=== PATIENT | male | born 1985 | race Caucasian/White ===

== ENCOUNTER 2018-09-05 22:26 | Inpatient (IN) | payer MEDICARE, MEDICAID ==
[~2018-09-05] VITALS: Ht 175.3 cm; Wt 63.2 kg
[2018-09-05] MEDS ORDERED: ACETAMINOP160 MG/5 M ORAL (22:43)
[2018-09-05] MEDS ORDERED: BISACODYL10 M1 RC (22:44)
[2018-09-05] MEDS ORDERED: DIPHENHYDRAMINE25 M1 JT (22:44)
[2018-09-05] MEDS ORDERED: KEPPRA500 M4 JT (22:45)
[2018-09-05] MEDS ORDERED: IBUPROFEN600 MG JT (22:45)
[2018-09-05] MEDS ORDERED: MILK OF MA400 MG/51 JT (22:47)
[2018-09-05] MEDS ORDERED: MULTIVITAMINS1 EAC8 JT (22:48)
[2018-09-05] MEDS ORDERED: POLYETHYLENE GL17 GM JT (22:48)
[2018-09-05] MEDS ORDERED: PROTONIX40 MG JT (22:48)
[2018-09-05] MEDS ORDERED: SENNA8.6 M2 JT (22:49)
--- NOTE | 2018-09-05 23:20 | NUR ---
ED Nurse Note: Pt was BIBA from SNF, C/O abdominal pain around G-tube site, 01/14 today. Pt is A/O X 4. Pt had Hx of CVA with right side weakness. G-tube in place and patent. Voiding, skin intact, Vital signs stable at this time.
[2018-09-05] MEDS ORDERED: Morphine Sulfate 2mg/ml Inj(IV/IM USE ONLY) IVP ONE (23:30)
[2018-09-05] MEDS ORDERED: Isovue-300 100ml vial INJ PRN (23:30)
--- NOTE | 2018-09-05 23:50 | NUR ---
ED Nurse Note: Blood and urine sample collected and sent to Lab.
--- NOTE | 2018-09-06 00:15 | NUR ---
ED Nurse Note: Meds given as ordered.
[2018-09-06 00:21] LABS: BASOPHILS % (AUTO) 0.9 % (0.0-2.0); EOSINOPHILS % (AUTO) 5.7 % (0.0-3.0); HEMOGLOBIN 11.8 G/DL (14.2-18.0); LYMPHOCYTES % (AUTO) 22.6 % (20.0-45.0); MEAN CORPUSCULAR VOLUME 83 FL (80-99); MONOCYTES % (AUTO) 11.6 % (1.0-10.0); NEUTROPHILS % (AUTO) 59.2 % (45.0-75.0); PLATELET COUNT 214 K/UL (150-450); RED BLOOD COUNT 4.47 M/UL (4.70-6.10); RED CELL DISTRIBUTION WIDTH 12.9 % (11.6-14.8); WHITE BLOOD COUNT 7.5 K/UL (4.8-10.8)
[2018-09-06 00:22] LABS: APPEARANCE,URINE CLEAR; BILIRUBIN, URINE NEGATIVE (NEGATIVE); COLOR,URINE PALE YELLOW; GLUCOSE, URINE (UA) NEGATIVE (NEGATIVE); KETONES,URINE NEGATIVE (NEGATIVE); LEUKOCYTE ESTERASE ,URINE NEGATIVE (NEGATIVE); NITRITE,URINE NEGATIVE (NEGATIVE); PH,URINE 7 (4.5-8.0); PROTEIN,URINE NEGATIVE (NEGATIVE); UROBILINOGEN,URINE NORMAL MG/DL (0.0-1.0)
[2018-09-06 01:02] LABS: ALANINE AMINOTRANSFERASE 20 U/L (12-78); ALBUMIN 3.4 G/DL (3.4-5.0); ALBUMIN/GLOBULIN RATIO 0.9 (1.0-2.7); ALKALINE PHOSPHATASE 83 U/L (46-116); ANION GAP 7 mmol/L (5-15); ASPARTATE AMINO TRANSFERASE 15 U/L (15-37); BILIRUBIN,TOTAL 0.2 MG/DL (0.2-1.0); BLOOD UREA NITROGEN 10 mg/dL (7-18); CALCIUM 8.9 MG/DL (8.5-10.1); CARBON DIOXIDE 28 MMOL/L (21-32); CHLORIDE 104 MMOL/L (98-107); CREATINE KINASE 136 U/L (26-308); CREATININE 0.8 MG/DL (0.55-1.30); POTASSIUM 3.8 MMOL/L (3.5-5.1); SODIUM 139 MMOL/L (136-145)
[2018-09-06 01:30] VITALS: BP 128/81
--- NOTE | 2018-09-06 01:51 | Diagnostic Imaging Report ---
EXAM: XR Chest, 1 View CLINICAL HISTORY: ABD PAIN TECHNIQUE: Frontal view of the chest. COMPARISON: No relevant prior studies available. FINDINGS: Lungs: Low lung volumes. Left lower lobe infiltrate. Pleural space: Small left effusion. No pneumothorax. Heart: Unremarkable. No cardiomegaly. Mediastinum: Unremarkable. Bones/joints: Unremarkable. IMPRESSION: Left lower lobe infiltrate and small left effusion, recommend followup to resolution.
--- NOTE | 2018-09-06 03:37 | Diagnostic Imaging Report ---
EXAM: CT Abdomen and Pelvis With Intravenous Contrast CLINICAL HISTORY: ABD PAIN TECHNIQUE: Axial computed tomography images of the abdomen and pelvis with intravenous contrast. CTDI is 10 mGy and DLP is 560 mGy-cm. One or more of the following dose reduction techniques were used: automated exposure control, adjustment of the mA and/or kV according to patient size, use of iterative reconstruction technique. COMPARISON: Correlated with earlier chest radiograph. FINDINGS: Lung bases: Query partial left pneumonectomy changes with left lower lobe infiltrates and small loculated left effusion. Trace right pleural effusion. Dependent vascular congestion/atelectasis. ABDOMEN: Liver: Unremarkable. No mass. Gallbladder and bile ducts: Unremarkable. No calcified stones. No ductal dilation. Pancreas: Unremarkable. No mass. No ductal dilation. Spleen: Unremarkable. No splenomegaly. Adrenals: Unremarkable. No mass. Kidneys and ureters: Multiple low-density lesions in the kidneys bilaterally. No hydronephrosis. Stomach and bowel: See below. PELVIS: Appendix: Normal appendix. Bladder: Distended bladder. Reproductive: Unremarkable as visualized. ABDOMEN and PELVIS: Intraperitoneal space: 10 x 8 x 8 cm cystic lesion in the lesser sac. No free air. Bones/joints: Partial fusion of the sacroiliac joints. Soft tissues: Postsurgical changes in anterior abdominal wall. Thickening of the lower left lateral chest wall with internal fluid and edema. Irregularity and deformity of the left seventh and eighth ribs, partially visualized. Vasculature: Unremarkable. Lymph nodes: Unremarkable. No enlarged lymph nodes. Tubes, lines and devices: Percutaneous jejunostomy catheter with tip in the right abdomen. No bowel obstruction. No diverticulitis. IMPRESSION: Postsurgical changes in the left lower hemithorax with associated loculated effusion and infiltrate/atelectasis versus aspiration. Probable thoracotomy changes in the low left lateral chest wall with fluid, edema, and irregularity. Correlate with clinical signs of infection. 10 x 8 x 8 cm cystic lesion in the lesser sac, may represent pseudocysts. Differential consideration is a bowel duplication cyst. Normal appendix. No free air. No bowel obstruction. Percutaneous jejunostomy tube in place. <MYCVCSECTION> Critical Value Communications 09/06/18 03:32 Call Doctor Regarding Above results, called ER Doctor on 09/06 03:31 (-08:00)
--- NOTE | 2018-09-06 03:41 | Emergency Room Report ---
History of Present Illness General Chief Complaint: Abdominal Pain Source: Patient, Medical Record, EMS Present Illness HPI Patient presents with abdominal pain. He has a J-tube in place. This is been going on for several days. Feels pressure and aching. It is nonradiating. Constant. He claims to be moving his bowels however complains of some constipation. There is no dysuria. Patient has a complicated history and apparently had perforation of the esophagus. He had also left pneumothorax that required 3 chest tubes and then throat decortication. This was back in 05/25/2018. 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 The patient has a history of seizures that's controlled on Keppra. He denies sore throat, cough or dyspnea chest pain or rashes. The weakness is not changed. He is somewhat depressed but optimistic. Allergies: Coded Allergies: No Known Allergies (Unverified , 09/05/18) Patient History Past Medical History: see triage record, old chart reviewed Past Surgical History: other Social History: Denies: smoking Social History Narrative SNF DNR Reviewed Nursing Documentation: PMH: Agreed; PSxH: Agreed Nursing Documentation-PMH Hx Gastrointestinal Problems: Yes - gastrostomy,gerd Hx Cerebrovascular Accident: Yes - tia,cva Hx Seizures: Yes Physical Exam Vital Signs Date Time Temp Pulse Resp B/P (MAP) Pulse Ox O2 Delivery O2 Flow Rate FiO2 09/05/18 22:32 97.7 93 16 124/82 94 Room Air Sp02 EP Interpretation: reviewed, normal General Appearance: well appearing, no apparent distress, GCS 15 Head: normocephalic, atraumatic Eyes: bilateral eye normal inspection, bilateral eye PERRL ENT: moist mucus membranes Neck: supple Respiratory: lungs clear, normal breath sounds Cardiovascular #1: regular rate, rhythm Cardiovascular #2: 2+ radial (R) Gastrointestinal: normal bowel sounds, no guarding, no rebound, distended, tenderness - Diffuse, other - J tube Musculoskeletal: other - contractures R hand Neurologic: oriented x3, responsive, sensory intact, motor weakness - R Psychiatric: mood/affect normal Skin: normal color, no rash Medical Decision Making Diagnostic Impression: Primary Impression: Abdominal pain Qualified Codes: R10.84 - Generalized abdominal pain Additional Impressions: Pseudocyst of pancreas Chronic left lung findings ER Course Patient presents with abdominal pain. Differential includes small bowel obstruction, constipation, diverticulitis, pancreatitis, urinary tract infection amongst others. The patient will be evaluated with EKG, chest x-ray and CT of the abdomen along with labs. The patient will be receiving IV hydration, Pepcid and analgesia. The patient has a J-tube and this also might be part of the difficulty. EKG normal sinus rhythm rate 73. Chest x-ray with left lower lobe atelectasis, effusion chronic changes. CT with large pseudocyst (also see results of lung findings). Labs with normal white count without left shift. CMP unremarkable. Urinalysis clear. Lipase normal. Patient is improved but still with abdominal discomfort. Based on CT needs admission for observation and evaluation of pseudocyst. Lung changes appear to be chronic. Antibiotics are not begun based on the clinical presentation. Patient admitted to Dr. Johnson who is covering for Dr. Lebron. Laboratory Tests Test 09/06/18 00:02 White Blood Count 7.5 K/UL (4.8-10.8) Red Blood Count 4.47 M/UL (4.70-6.10) L Hemoglobin 11.8 G/DL (14.2-18.0) L Hematocrit 37.0 % (42.0-52.0) L Mean Corpuscular Volume 83 FL (80-99) Mean Corpuscular Hemoglobin 26.5 PG (27.0-31.0) L Mean Corpuscular Hemoglobin Concent 32.0 G/DL (32.0-36.0) Red Cell Distribution Width 12.9 % (11.6-14.8) Platelet Count 214 K/UL (150-450) Mean Platelet Volume 5.1 FL (6.5-10.1) L Neutrophils (%) (Auto) 59.2 % (45.0-75.0) Lymphocytes (%) (Auto) 22.6 % (20.0-45.0) Monocytes (%) (Auto) 11.6 % (1.0-10.0) H Eosinophils (%) (Auto) 5.7 % (0.0-3.0) H Basophils (%) (Auto) 0.9 % (0.0-2.0) Prothrombin Time 10.6 SEC (9.30-11.50) Prothrombin Time INR 1.0 (0.9-1.1) PTT 27 SEC (23-33) Urine Color Pale yellow Urine Appearance Clear Urine pH 7 (4.5-8.0) Urine Specific [place] 1.010 (1.005-1.035) Urine Protein Negative (NEGATIVE) Urine Glucose (UA) Negative (NEGATIVE) Urine Ketones Negative (NEGATIVE) Urine Blood Negative (NEGATIVE) Urine Nitrite Negative (NEGATIVE) Urine Bilirubin Negative (NEGATIVE) Urine Urobilinogen Normal MG/DL (0.0-1.0) Urine Leukocyte Esterase Negative (NEGATIVE) Sodium Level 139 MMOL/L (136-145) Potassium Level 3.8 MMOL/L (3.5-5.1) Chloride Level 104 MMOL/L (98-107) Carbon Dioxide Level 28 MMOL/L (21-32) Anion Gap 7 mmol/L (5-15) Blood Urea Nitrogen 10 mg/dL (7-18) Creatinine 0.8 MG/DL (0.55-1.30) Estimate Glomerular Filtration Rate > 60 mL/min (>60) Glucose Level 87 MG/DL (74-106) Lactic Acid Level 1.00 mmol/L (0.4-2.0) Calcium Level 8.9 MG/DL (8.5-10.1) Total Bilirubin 0.2 MG/DL (0.2-1.0) Aspartate Amino Transferase (AST) 15 U/L (15-37) Alanine Aminotransferase (ALT) 20 U/L (12-78) Alkaline Phosphatase 83 U/L (46-116) Total Creatine Kinase 136 U/L (26-308) Total Protein 7.2 G/DL (6.4-8.2) Albumin 3.4 G/DL (3.4-5.0) Globulin 3.8 g/dL Albumin/Globulin Ratio 0.9 (1.0-2.7) L Lipase 123 U/L (73-393) EKG Diagnostic Results Rate: normal Rhythm: NSR ST Segments: no acute changes Rhythm Strip Diag. Results EP Interpretation: yes Rhythm: NSR, no PVC's, no ectopy Chest X-Ray Diagnostic Results Chest X-Ray Diagnostic Results : Chest X-Ray Ordered: Yes # of Views/Limited/Complete: 1 View Indication: Other EP Interpretation: Yes Interpretation: no pneumothorax, other - Atelectasis, effusion chronic changes left base Impression: Other Electronically Signed by: Electronically signed by Vik Jon MD CT/MRI/US Diagnostic Results CT/MRI/US Diagnostic Results : Imaging Test Ordered: abd/pelvis Impression Postsurgical changes in the left lower hemithorax with associated loculated effusion and infiltrate/atelectasis versus aspiration. Probable thoracotomy changes in the low left lateral chest wall with fluid, edema, and irregularity. Correlate with clinical signs of infection. 10 x 8 x 8 cm cystic lesion in the lesser sac, may represent pseudocysts. Differential consideration is a bowel duplication cyst. Normal appendix. No free air. No bowel obstruction. Percutaneous jejunostomy tube in place. Last Vital Signs Date Time Temp Pulse Resp B/P (MAP) Pulse Ox O2 Delivery O2 Flow Rate FiO2 09/06/18 09:00 Room Air 09/06/18 08:00 98.0 84 17 119/70 (86) 96 Status: improved Disposition: ADMITTED INPATIENT Condition: Serious Referrals: Vahe Vera MD (PCP) Vik Jon MD Sep 06, 2018 03:41
--- NOTE | 2018-09-06 04:03 | NUR ---
ED Nurse Note: Pt refused to have VRE done.
--- NOTE | 2018-09-06 04:15 | NUR ---
TRANSFER TO FLOOR: Patient transferred to /S 403 as ordered . Report given to AURELIO/RN. Belongings sent with pt and rechecked with RN. Pt is A/O X 4. VSS. Right side weakness.
[2018-09-06 04:34] VITALS: BP 114/80
--- NOTE | 2018-09-06 04:41 | NUR ---
NURSE NOTES: Admitted patient awake,alert,verbal,ambulatory,no SOB nor abdominal pain,with essentially normal vital signs. Patient does not want to change to hospital gown at this time.
[2018-09-06] MEDS ORDERED: ACETAMINOPHEN325 M1 JT (06:38)
[2018-09-06] MEDS ORDERED: KEPPRA LIQ100 MG/1 M ORAL (06:38)
--- NOTE | 2018-09-06 07:00 | NUR ---
NURSE NOTES: Left messages to Aziza Hein, and for admitting orders.Awaiting call back. Charge Nurse Neela, and Nursing B Operator Vimal aware.
--- NOTE | 2018-09-06 07:30 | NUR ---
NURSE NOTES: Received report from ADA Velazquez, Patient alert x4, on room air, no sign of distress and shortness of breath; no sign of chest pain; J-Tube in place; IV RFA flushes well; patient is ambulatory, history of CVA and R-upper extremity weakness and contracted; PM nurse, Caroline didn't received admission order from MD Vera and also PM nurse tried to reach MD Beck, who is covering for MD Vera. Will follow up on the admission order; explained to patient that still waiting for the admission order. Bed at lowest position, side rails, breaks engaged; Call light within reach, will keep monitoring.
--- NOTE | 2018-09-06 07:33 | NUR ---
HAND-OFF: Report given to Zena Robb RN and to follow-up admitting orders..
[2018-09-06 08:00] VITALS: BP 119/70
--- NOTE | 2018-09-06 09:25 | NUR ---
NURSE NOTES: I called to get admission order for this patient to MD Beck office, I spoke to Terrence. Waiting call back to get admission order.
--- NOTE | 2018-09-06 09:59 | NUR ---
NURSE NOTES: I got a call back from [phone] number by MD Kumar and told that MD Beck isn't covering for MD Vera. I called MD Vera and I just followed the voice instruction and called MD Mustafa; however MD Mustafa said is not covering for MD Kumar; I called nursing complaint supervisor, Ms Colin, to find out who is covering for MD Jaimes, I was told by nursing complaint supervisor that MD Montiel is covering for MD Kumar; I communicated MD Montiel and waiting for order.
--- NOTE | 2018-09-06 12:13 | Consultation ---
History of Present Illness General Date patient seen: Sep 06, 2018 Reason for Hospitalization: Abdominal Pain Present Illness HPI 33 year old male with complex medical and surgical history presented with abdominal pain. States he has been at Rehab facility when he noted some abdominal cramping while sneezing. Did not feel comfortable and [place] [facility] [place]. 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 He had a fall in 2010 causing esophageal dysmotility as per patient and sometime in 2010 he had aspirated a piece of chicken which required endoscopic removal where a potential tear in his esophagus was noted as per patient. And late 2017 he had aspiration of a turkey sandwich at which time at [facility] he had endoscopic removal from his esophagus and they noted a laceration in his esophagus. He underwent a thoracotomy with a muscle flap repair of the esophageal tear as well as a open feeding tube placement. Since he has been in rehab tolerating pured diet with meds through his J-tube. Recently he began to have abdominal pain with sneezing. On admission to the emergency department labs were otherwise normal but CT scan demonstrated a large lesser sac cyst versus fluid collection. Patient was admitted for care and management and surgery was called to evaluate. Currently patient states he is feeling well and hungry but does have some discomfort when he coughs or sneezes. Of note patient states that he has had pancreatitis in the past. Allergies: Coded Allergies: No Known Allergies (Unverified , 09/05/18) Medication History Scheduled Acetaminophen* (Acetaminophen 325MG Tablet*), 650 MG JT Q6H, (Reported) Levetiracetam (Keppra), 100 MG JT EVERY 12 HOURS, (Reported) Levetiracetam (Keppra), 15 ML ORAL BID, (Reported) Multivitamin With Minerals (Multivitamins With Minerals*), 1 TAB JT DAILY, ( Reported) Pantoprazole* (Protonix*), 40 MG JT DAILY, (Reported) Polyethylene Glycol 3350* (Polyethylene Glycol 3350*), 17 GM JT DAILY, (Reported ) Sennosides (Senna), 8.6 MG JT DAILY, (Reported) Scheduled PRN Acetaminophen 160MG/5ML* (Acetaminophen*), 650 MG ORAL THREE TIMES A DAY PRN for Fever/Headache/Mild Pain, (Reported) Bisacodyl (Bisacodyl), 10 MG RC DAILY PRN for Constipation, (Reported) Diphenhydramine Hcl* (Diphenhydramine Hcl*), 25 MG JT EVERY 4 HOURS PRN for Itching, (Reported) Ibuprofen* (Motrin*), 400 MG JT EVERY 8 HOURS PRN for For Pain, (Reported) Magnesium Hydroxide* (Milk Of Magnesia*), 15 ML JT EVERY 12 HOURS PRN for Constipation, (Reported) Patient History History Provided By: Patient, Medical Record, PMD Healthcare decision maker Resuscitation status Do Not Resuscitate Advanced Directive on File No Past Medical/Surgical History Past Medical/Surgical History: (1) Pseudocyst of pancreas (2) Abdominal pain Review of Systems Review of Symptoms General ROS: no weight loss or fever Psychological ROS: no depression or mood changes, no memory loss Ophthalmic ROS: no visual changes or eye irritation ENT ROS: no nasal congestion, hearing loss, dizziness Allergy and Immunology ROS: no allergic symptoms or urticaria Hematological and Lymphatic ROS: no swollen glands, unusual bleeding or bruising Endocrine ROS: no polyuria, polydipsia, weight changes, temperature intolerance Respiratory ROS: no cough, shortness of breath, or wheezing Cardiovascular ROS: no chest pain or dyspnea on exertion Gastrointestinal ROS: denies abdominal pain, bright red blood in stool. Musculoskeletal ROS: no myalgias or arthralgias Neurological ROS: no TIA or stroke symptoms Dermatological ROS: no new or changing skin lesions, rashes or pruritis Physical Exam Physical Exam General appearance: alert, cooperative, no distress, appears stated age Head: Normocephalic, without obvious abnormality, atraumatic Eyes: conjunctivae/corneas clear. PERRL, EOM's intact. Fundi benign Throat: Lips, mucosa, and tongue normal. Teeth and gums normal Neck: supple, symmetrical, trachea midline, no adenopathy, thyroid: not enlarged, symmetric, no tenderness/mass/nodules, no carotid bruit and no JVD Lungs: clear to auscultation bilaterally. left throractomy incision well healed Heart: regular rate and rhythm, S1, S2 normal, no murmur, click, rub or gallop Abdomen: soft, non-tender. Bowel sounds normal. No masses, no organomegaly. midline incision healed. left j feeding tube Extremities: extremities normal, atraumatic, no cyanosis or edema Pulses: 2+ and symmetric Skin: Skin color, texture, turgor normal. No rashes or lesions Neurologic: Grossly normal Last 24 Hour Vital Signs Date Time Temp Pulse Resp B/P (MAP) Pulse Ox O2 Delivery O2 Flow Rate FiO2 09/06/18 09:00 Room Air 09/06/18 08:00 98.0 84 17 119/70 (86) 96 09/06/18 04:34 Room Air 09/06/18 04:34 97.4 70 18 114/80 (91) 96 09/06/18 01:30 97.8 79 16 128/81 94 Room Air 09/06/18 01:30 78 16 Room Air 09/06/18 00:45 97.4 09/05/18 22:32 97.7 93 16 124/82 94 Room Air Intake and Output 09/05/18 09/06/18 19:00 07:00 Intake Total 300 ml Balance 300 ml Intake Oral 0 ml Other 300 ml # Voids 1 Laboratory Tests Test 09/06/18 00:02 White Blood Count 7.5 K/UL (4.8-10.8) Red Blood Count 4.47 M/UL (4.70-6.10) L Hemoglobin 11.8 G/DL (14.2-18.0) L Hematocrit 37.0 % (42.0-52.0) L Mean Corpuscular Volume 83 FL (80-99) Mean Corpuscular Hemoglobin 26.5 PG (27.0-31.0) L Mean Corpuscular Hemoglobin Concent 32.0 G/DL (32.0-36.0) Red Cell Distribution Width 12.9 % (11.6-14.8) Platelet Count 214 K/UL (150-450) Mean Platelet Volume 5.1 FL (6.5-10.1) L Neutrophils (%) (Auto) 59.2 % (45.0-75.0) Lymphocytes (%) (Auto) 22.6 % (20.0-45.0) Monocytes (%) (Auto) 11.6 % (1.0-10.0) H Eosinophils (%) (Auto) 5.7 % (0.0-3.0) H Basophils (%) (Auto) 0.9 % (0.0-2.0) Prothrombin Time 10.6 SEC (9.30-11.50) Prothromb Time International Ratio 1.0 (0.9-1.1) Activated Partial Thromboplast Time 27 SEC (23-33) Urine Color Pale yellow Urine Appearance Clear Urine pH 7 (4.5-8.0) Urine Specific [place] 1.010 (1.005-1.035) Urine Protein Negative (NEGATIVE) Urine Glucose (UA) Negative (NEGATIVE) Urine Ketones Negative (NEGATIVE) Urine Blood Negative (NEGATIVE) Urine Nitrite Negative (NEGATIVE) Urine Bilirubin Negative (NEGATIVE) Urine Urobilinogen Normal MG/DL (0.0-1.0) Urine Leukocyte Esterase Negative (NEGATIVE) Sodium Level 139 MMOL/L (136-145) Potassium Level 3.8 MMOL/L (3.5-5.1) Chloride Level 104 MMOL/L (98-107) Carbon Dioxide Level 28 MMOL/L (21-32) Anion Gap 7 mmol/L (5-15) Blood Urea Nitrogen 10 mg/dL (7-18) Creatinine 0.8 MG/DL (0.55-1.30) Estimat Glomerular Filtration Rate > 60 mL/min (>60) Glucose Level 87 MG/DL (74-106) Lactic Acid Level 1.00 mmol/L (0.4-2.0) Calcium Level 8.9 MG/DL (8.5-10.1) Total Bilirubin 0.2 MG/DL (0.2-1.0) Aspartate Amino Transf (AST/SGOT) 15 U/L (15-37) Alanine Aminotransferase (ALT/SGPT) 20 U/L (12-78) Alkaline Phosphatase 83 U/L (46-116) Total Creatine Kinase 136 U/L (26-308) Total Protein 7.2 G/DL (6.4-8.2) Albumin 3.4 G/DL (3.4-5.0) Globulin 3.8 g/dL Albumin/Globulin Ratio 0.9 (1.0-2.7) L Lipase 123 U/L (73-393) Height (Feet): 5 Height (Inches): 9.00 Weight (Pounds): 140 Medications Current Medications Medications (Trade) Dose Ordered Sig/Dolores Route PRN Reason Start Time Stop Time Status Last Admin Dose Admin Barium Sulfate (Readi-Cat 2) 450 ml NOW PRN ORAL Radiology Procedure 09/05/18 23:30 09/07/18 23:18 Iopamidol (Isovue-300 100ml) 100 ml NOW PRN INJ Radiology Procedure 09/05/18 23:30 Sodium Chloride 1,000 ml @ 300 mls/hr Q3H20M IV 09/05/18 23:30 10/05/18 23:29 09/06/18 00:14 Assessment/Plan Problem List: (1) Abdominal pain Assessment & Plan: This is a 33-year-old male with complex medical and surgical history who presents with abdominal pain while coughing or sneezing. Patient is afebrile hemodynamically stable with otherwise normal labs. Patient' s CAT scan demonstrates a moderate sized lesser sac fluid collection with unknown etiology.10 x 8 x 8 cm cystic lesion in the lesser sac, may represent pseudocysts. Differential consideration is a bowel duplication cyst. likely pancreatic pseydocyst from prior pancreatitis. will need to review records from [facility] once available Okay for Puree diet for now okay for meds though J tube will review films with radiologist and GI Thank you will follow with recs. ICD Codes: R10.9 - Unspecified abdominal pain SNOMED: 43295429 (2) Pseudocyst of pancreas ICD Codes: K86.3 - Pseudocyst of pancreas SNOMED: [id number] Chevy Ren Sep 06, 2018 12:12
[2018-09-06] MEDS ORDERED: HYDROmorphone 1mg/ml Carpuject IVP PRN (12:15)
--- NOTE | 2018-09-06 13:00 | NUR ---
NURSE NOTES: I communicated Dr Johnson that patient is DNR and DNI at the facility patient came from. Order received from MD Johnson, Full Code.
[2018-09-06] MEDS: levETIRAcetam 500mg/NS100ml 100 ML IVPB SCH ×2 (14:23→20:05)
[2018-09-06] MEDS: Piperacillin/Tazobactam 3.375 GM in D5W 110 ML IVPB SCH ×2 (15:54→20:59)
[2018-09-06 16:00] VITALS: BP 116/76
--- NOTE | 2018-09-06 18:14 | NUR ---
NURSE NOTES: Dressing on J-tube changed, patient tolerated well.
--- NOTE | 2018-09-06 19:13 | NUR ---
HAND-OFF: Report given to ADA Quezada.
[2018-09-06 20:00] VITALS: BP 111/71
--- NOTE | 2018-09-06 20:00 | NUR ---
NURSE NOTES: Received patient awake,alert,verbal,resting in bed,comfortable.
[2018-09-06] MEDS: Heparin 5000 units/ml inj SUBQ SCH ×2 (20:05→20:19)
--- NOTE | 2018-09-06 22:30 | History and Physical Report ---
DATE OF ADMISSION: 09/06/2018 CHIEF COMPLAINT: Abdominal pain. HISTORY OF PRESENT ILLNESS: The patient is a 33-year-old male. He has a prior history of seizure disorder. According to the patient, he was well until May when he was in [place] and got a piece of turkey stuck in his throat. [facility]oscopy to remove the turkey. Apparently at that time, they found a large laceration in the esophagus. According to the patient, he believes laceration had been there for several years. He had a G-tube placed in the meantime to allow for healing of the esophageal laceration. The patient was well until the night of admission, when developed severe epigastric abdominal pain and presented to the emergency room. On evaluation there, he was noted to have evidence of a loculated pleural effusion. It is unclear if this is old. He has a large cyst in the lesser sac and also seen on CAT scan. It is unclear whether or not this is new. The patient denies any melena. He has had no bright red blood per rectum. Denies any fevers or chills. The patient is now admitted for further evaluation. PAST MEDICAL HISTORY: As above. PAST SURGICAL HISTORY: As above. CURRENT MEDICATIONS: Reconciled and reviewed. ALLERGIES: None. FAMILY HISTORY: None. SOCIAL HISTORY: Negative for tobacco, ethanol, or drugs. REVIEW OF SYSTEMS: GENERAL: No fevers or chills. HEENT: No headaches or visual changes. CARDIOPULMONARY: No chest pain or shortness of breath. GASTROINTESTINAL: Positive midepigastric abdominal pain. GENITOURINARY: No urgency or frequency. MUSCULOSKELETAL: No joint pain or swelling. NEUROLOGIC: No evidence of seizures. LABORATORY DATA: Sodium 139, potassium was 3.8, and creatinine was 0.8. LFTs were normal. Lipase was normal. The white count was 7. Hemoglobin 11, hematocrit 37, and platelets of 314,000. ASSESSMENT: This is a pleasant male with a history of esophageal laceration. G-tube with complaints of abdominal pain of unclear etiology. It is unclear whether or not this pain is related to a cyst. PLAN: Gastrointestinal and Surgical evaluations. Empiric antibiotic therapy to cover for pneumonia. Pulmonary consultation will also be obtained. The patient will be continued on seizure medications, but otherwise will be kept NPO until seen by consultants. Louis Johnson M.D. DR: BROWN JOB#: [id number] CC:
[2018-09-07 04:00] VITALS: BP 105/74
[2018-09-07] MEDS: Piperacillin/Tazobactam 3.375 GM in D5W 110 ML IVPB SCH ×3 (05:00→22:10)
--- NOTE | 2018-09-07 07:11 | NUR ---
HAND-OFF: Report given to Zena Robb RN.
--- NOTE | 2018-09-07 07:44 | NUR ---
NURSE NOTES: Patient alert x4, on room air, no sign of distress and shortness of breath; no sign of chest pain; IV RFA fluid running; J-Tube in place; patient ambulatory; bed at low position, side rails up x2, breaks engaged. Call light within reach. Will keep monitoring.
[2018-09-07 08:00] VITALS: BP 127/75
[2018-09-07] MEDS: Pantoprazole Inj IVP SCH (09:07)
[2018-09-07] MEDS: levETIRAcetam 500mg/NS100ml 100 ML IVPB SCH ×2 (09:07→20:59)
[2018-09-07] MEDS: Heparin 5000 units/ml inj SUBQ SCH ×2 (09:11→21:01)
[2018-09-07 09:24] LABS: BASOPHILS % (AUTO) 0.6 % (0.0-2.0); EOSINOPHILS % (AUTO) 4.7 % (0.0-3.0); HEMATOCRIT 38.2 % (42.0-52.0); HEMOGLOBIN 12.2 G/DL (14.2-18.0); LYMPHOCYTES % (AUTO) 13.1 % (20.0-45.0); MEAN CORPUSCULAR VOLUME 84 FL (80-99); MONOCYTES % (AUTO) 9.2 % (1.0-10.0); NEUTROPHILS % (AUTO) 72.4 % (45.0-75.0); PLATELET COUNT 208 K/UL (150-450); RED BLOOD COUNT 4.55 M/UL (4.70-6.10); RED CELL DISTRIBUTION WIDTH 12.8 % (11.6-14.8); WHITE BLOOD COUNT 6.4 K/UL (4.8-10.8)
[2018-09-07 09:49] LABS: ALANINE AMINOTRANSFERASE 17 U/L (12-78); ALBUMIN/GLOBULIN RATIO 0.7 (1.0-2.7); ALKALINE PHOSPHATASE 80 U/L (46-116); AMYLASE 36 U/L (25-115); ANION GAP 9 mmol/L (5-15); ASPARTATE AMINO TRANSFERASE 15 U/L (15-37); BILIRUBIN,TOTAL 0.5 MG/DL (0.2-1.0); BLOOD UREA NITROGEN 8 mg/dL (7-18); CALCIUM 8.6 MG/DL (8.5-10.1); CARBON DIOXIDE 27 MMOL/L (21-32); CHLORIDE 103 MMOL/L (98-107); CREATININE 0.9 MG/DL (0.55-1.30); POTASSIUM 3.6 MMOL/L (3.5-5.1); SODIUM 139 MMOL/L (136-145)
[2018-09-07 12:00] VITALS: BP 127/75
[2018-09-07] MEDS ORDERED: Gadavist 7.5mMol/7.5ml vial IV PRN (13:15)
--- NOTE | 2018-09-07 13:15 | Surgery Progress Note ---
Surgery Progress Note Subjective Additional Comments no acute events. resting comfortable. no n/v/f/c. tolerating. labs noted. Objective Last 24 Hour Vital Signs Date Time Temp Pulse Resp B/P (MAP) Pulse Ox O2 Delivery O2 Flow Rate FiO2 09/07/18 12:00 98.3 88 18 127/75 (92) 97 09/07/18 09:00 Room Air 09/07/18 08:00 98.3 88 18 127/75 (92) 97 09/07/18 04:00 98.0 85 16 105/74 (84) 95 09/06/18 21:17 Room Air 09/06/18 20:00 97.7 89 18 111/71 (84) 95 09/06/18 16:00 97.0 98 20 116/76 (89) 95 I&O Intake and Output 09/06/18 09/07/18 19:00 07:00 Intake Total 400 ml 965.0 ml Output Total 250 ml Balance 150 ml 965.0 ml Intake Oral 400 ml 400 ml IV Total 565.0 ml Output Urine Total 250 ml # Voids 3 3 Drains: other Cardiovascular: RSR Respiratory: clear Abdomen: soft, non-tender, non-distended Extremities: no cyanosis Laboratory Tests Test 09/07/18 08:45 White Blood Count 6.4 K/UL (4.8-10.8) Red Blood Count 4.55 M/UL (4.70-6.10) L Hemoglobin 12.2 G/DL (14.2-18.0) L Hematocrit 38.2 % (42.0-52.0) L Mean Corpuscular Volume 84 FL (80-99) Mean Corpuscular Hemoglobin 26.7 PG (27.0-31.0) L Mean Corpuscular Hemoglobin Concent 31.8 G/DL (32.0-36.0) L Red Cell Distribution Width 12.8 % (11.6-14.8) Platelet Count 208 K/UL (150-450) Mean Platelet Volume 5.0 FL (6.5-10.1) L Neutrophils (%) (Auto) 72.4 % (45.0-75.0) Lymphocytes (%) (Auto) 13.1 % (20.0-45.0) L Monocytes (%) (Auto) 9.2 % (1.0-10.0) Eosinophils (%) (Auto) 4.7 % (0.0-3.0) H Basophils (%) (Auto) 0.6 % (0.0-2.0) Erythrocyte Sedimentation Rate 24 MM/HR (0-15) H Prothrombin Time 10.7 SEC (9.30-11.50) Prothromb Time International Ratio 1.0 (0.9-1.1) Activated Partial Thromboplast Time 28 SEC (23-33) Sodium Level 139 MMOL/L (136-145) Potassium Level 3.6 MMOL/L (3.5-5.1) Chloride Level 103 MMOL/L (98-107) Carbon Dioxide Level 27 MMOL/L (21-32) Anion Gap 9 mmol/L (5-15) Blood Urea Nitrogen 8 mg/dL (7-18) Creatinine 0.9 MG/DL (0.55-1.30) Estimat Glomerular Filtration Rate > 60 mL/min (>60) Glucose Level 144 MG/DL (74-106) H Calcium Level 8.6 MG/DL (8.5-10.1) Total Bilirubin 0.5 MG/DL (0.2-1.0) Aspartate Amino Transf (AST/SGOT) 15 U/L (15-37) Alanine Aminotransferase (ALT/SGPT) 17 U/L (12-78) Alkaline Phosphatase 80 U/L (46-116) C-Reactive Protein, Quantitative 4.6 mg/dL (0.00-0.90) H Total Protein 7.1 G/DL (6.4-8.2) Albumin 3.0 G/DL (3.4-5.0) L Globulin 4.1 g/dL Albumin/Globulin Ratio 0.7 (1.0-2.7) L Amylase Level 36 U/L (25-115) Lipase 114 U/L (73-393) Plan Problems: (1) Abdominal pain Assessment & Plan: This is a 33-year-old male with complex medical and surgical history who presents with abdominal pain while coughing or sneezing. Patient is afebrile hemodynamically stable with otherwise normal labs. Patient' s CAT scan demonstrates a moderate sized lesser sac fluid collection with unknown etiology.10 x 8 x 8 cm cystic lesion in the lesser sac, may represent pseudocysts. Differential consideration is a bowel duplication cyst. likely pancreatic pseydocyst from prior pancreatitis. will need to review records from [facility] once available Okay for Puree diet for now okay for meds though J tube will review films with radiologist and GI MRI Abdomen ordered Thank you will follow with recs. (2) Pseudocyst of pancreas Chevy Ren Sep 07, 2018 13:15
--- NOTE | 2018-09-07 13:52 | General Progress Note ---
Assessment/Plan Problem List: (1) CVA (cerebral vascular accident) ICD Codes: I63.9 - Cerebral infarction, unspecified SNOMED: 207259909 (2) Seizure ICD Codes: R56.9 - Unspecified convulsions SNOMED: 64213705 (3) Pleural effusion ICD Codes: J90 - Pleural effusion, not elsewhere classified SNOMED: 15860250 (4) Abdominal pain ICD Codes: R10.9 - Unspecified abdominal pain SNOMED: 34428625 Qualifiers: Qualified Codes: R10.84 - Generalized abdominal pain (5) Pseudocyst of pancreas ICD Codes: K86.3 - Pseudocyst of pancreas SNOMED: 412907762 Status: stable, progressing Assessment/Plan po per surgery mri abx pulm follow up regarding pleural effusion sz rx Subjective ROS Limited/Unobtainable: No Constitutional: Reports: malaise, weakness HEENT: Reports: no symptoms Cardiovascular: Reports: no symptoms Respiratory: Reports: no symptoms Gastrointestinal/Abdominal: Reports: nausea Genitourinary: Reports: no symptoms Neurologic/Psychiatric: Reports: seizure Endocrine: Reports: no symptoms Hematologic/Lymphatic: Reports: no symptoms Allergies: Coded Allergies: No Known Allergies (Unverified , 09/05/18) All Systems: reviewed and negative except above Subjective no events. decreased abd pain. no cough. no fever or chills. Objective Last 24 Hour Vital Signs Date Time Temp Pulse Resp B/P (MAP) Pulse Ox O2 Delivery O2 Flow Rate FiO2 09/07/18 12:00 98.3 88 18 127/75 (92) 97 09/07/18 09:00 Room Air 09/07/18 08:00 98.3 88 18 127/75 (92) 97 09/07/18 04:00 98.0 85 16 105/74 (84) 95 09/06/18 21:17 Room Air 09/06/18 20:00 97.7 89 18 111/71 (84) 95 09/06/18 16:00 97.0 98 20 116/76 (89) 95 Intake and Output 09/06/18 09/07/18 19:00 07:00 Intake Total 400 ml 965.0 ml Output Total 250 ml Balance 150 ml 965.0 ml Intake Oral 400 ml 400 ml IV Total 565.0 ml Output Urine Total 250 ml # Voids 3 3 Laboratory Tests 09/07/18 08:45: White Blood Count 6.4, Red Blood Count 4.55L, Hemoglobin 12.2L, Hematocrit 38.2L , Mean Corpuscular Volume 84, Mean Corpuscular Hemoglobin 26.7L, Mean Corpuscular Hemoglobin Concent 31.8L, Red Cell Distribution Width 12.8, Platelet Count 208, Mean Platelet Volume 5.0L, Neutrophils (%) (Auto) 72.4, Lymphocytes (%) (Auto) 13.1L, Monocytes (%) (Auto) 9.2, Eosinophils (%) (Auto) 4.7H, Basophils (%) (Auto) 0.6, Erythrocyte Sedimentation Rate 24H, Prothrombin Time 10.7, Prothromb Time International Ratio 1.0, Activated Partial Thromboplast Time 28, Sodium Level 139, Potassium Level 3.6, Chloride Level 103 , Carbon Dioxide Level 27, Anion Gap 9, Blood Urea Nitrogen 8, Creatinine 0.9, Estimat Glomerular Filtration Rate > 60, Glucose Level 144H, Calcium Level 8.6, Total Bilirubin 0.5, Aspartate Amino Transf (AST/SGOT) 15, Alanine Aminotransferase (ALT/SGPT) 17, Alkaline Phosphatase 80, C-Reactive Protein, Quantitative 4.6H, Total Protein 7.1, Albumin 3.0L, Globulin 4.1, Albumin/ Globulin Ratio 0.7L, Amylase Level 36, Lipase 114 Height (Feet): 5 Height (Inches): 9.00 Weight (Pounds): 140 General Appearance: WD/WN, alert Neck: supple Cardiovascular: normal rate, regular rhythm Respiratory/Chest: chest wall non-tender, lungs clear, normal breath sounds, no respiratory distress Abdomen: normal bowel sounds, non tender, soft, no organomegaly Edema: no edema noted Arm (L), no edema noted Arm (R), no edema noted Leg (L), no edema noted Leg (R), no edema noted Pedal (L), no edema noted Pedal (R), no edema noted 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
[2018-09-07 16:00] VITALS: BP 108/69
--- NOTE | 2018-09-07 19:21 | NUR ---
HAND-OFF: Report given to Issac Quezada.
--- NOTE | 2018-09-07 20:00 | NUR ---
NURSE NOTES: Received patient awake,alert,verbal,resting comfortably without complaints.
[2018-09-07 20:03] VITALS: BP 116/73
[2018-09-08] MEDS: Piperacillin/Tazobactam 3.375 GM in D5W 110 ML IVPB SCH ×3 (04:52→22:37)
--- NOTE | 2018-09-08 07:29 | NUR ---
HAND-OFF: Report given to Ofe Jaramillo RN.
--- NOTE | 2018-09-08 07:35 | NUR ---
NURSE NOTES: Received report from Issac Velazquez. Pt in bed asleep, respiration regular, no apparent distress noted, Pt NPO for pending procedures, bed in lowest position, call light within reach.
[2018-09-08 08:00] VITALS: BP 117/80
--- NOTE | 2018-09-08 08:10 | Pulmonology Progress Note ---
Assessment/Plan Assessment/Plan prior thoracotomy pleural effusion, loculated likely post operative changes abdominal pain seizure history abnormal CT abdomen PLAN monitor pulmonary status periodic imaging oxygen as needed MRI abdomen surgical follow up continue as is impression, plan, and exam edited and reviewed in detail care discussed with RN Subjective Allergies: Coded Allergies: No Known Allergies (Unverified , 09/05/18) Subjective care noted and reviewed awaiting MRI Objective Last 24 Hour Vital Signs Date Time Temp Pulse Resp B/P (MAP) Pulse Ox O2 Delivery O2 Flow Rate FiO2 09/07/18 20:03 96.4 18 116/73 (87) 96 09/07/18 18:06 Room Air 09/07/18 16:00 98.2 77 20 108/69 (82) 97 09/07/18 12:00 98.3 88 18 127/75 (92) 97 09/07/18 09:00 Room Air Intake and Output 09/07/18 09/08/18 19:00 07:00 Intake Total 1350 ml 1507.5 ml Output Total 1500 ml 500 ml Balance -150 ml 1007.5 ml Intake Oral 450 ml 820 ml IV Total 900 ml 687.5 ml Output Urine Total 1500 ml 500 ml # Voids 3 Objective WDWN NAD clear breath sounds with reduced left base; no rhonchi or wheeze [id number] without MRG NABS nontender no HSM; no distention no CCE weak Microbiology Date/Time Source Procedure Growth Status 09/06/18 04:30 Nasal Nares MRSA Culture - Final NO METHICILLIN RESISTANT STAPH AUREUS... Complete Laboratory Tests 09/07/18 08:45: White Blood Count 6.4, Red Blood Count 4.55L, Hemoglobin 12.2L, Hematocrit 38.2L , Mean Corpuscular Volume 84, Mean Corpuscular Hemoglobin 26.7L, Mean Corpuscular Hemoglobin Concent 31.8L, Red Cell Distribution Width 12.8, Platelet Count 208, Mean Platelet Volume 5.0L, Neutrophils (%) (Auto) 72.4, Lymphocytes (%) (Auto) 13.1L, Monocytes (%) (Auto) 9.2, Eosinophils (%) (Auto) 4.7H, Basophils (%) (Auto) 0.6, Erythrocyte Sedimentation Rate 24H, Prothrombin Time 10.7, Prothromb Time International Ratio 1.0, Activated Partial Thromboplast Time 28, Sodium Level 139, Potassium Level 3.6, Chloride Level 103 , Carbon Dioxide Level 27, Anion Gap 9, Blood Urea Nitrogen 8, Creatinine 0.9, Estimat Glomerular Filtration Rate > 60, Glucose Level 144H, Calcium Level 8.6, Total Bilirubin 0.5, Aspartate Amino Transf (AST/SGOT) 15, Alanine Aminotransferase (ALT/SGPT) 17, Alkaline Phosphatase 80, C-Reactive Protein, Quantitative 4.6H, Total Protein 7.1, Albumin 3.0L, Globulin 4.1, Albumin/ Globulin Ratio 0.7L, Amylase Level 36, Lipase 114 Current Medications Medications (Trade) Dose Ordered Sig/Dolores Route PRN Reason Start Time Stop Time Status Last Admin Dose Admin Dextrose/ Electrolytes 1,000 ml @ 75 mls/hr [id number] IV 09/06/18 14:00 10/06/18 13:59 09/07/18 16:42 Gadobutrol (Gadavist) 7.5 mmol NOW PRN IV Radiology Procedure 09/07/18 13:15 09/11/18 13:15 Heparin Sodium (Porcine) (Heparin 5000 units/ml) 5,000 units EVERY 12 HOURS SUBQ 09/06/18 21:00 10/06/18 20:59 09/07/18 21:01 Hydromorphone HCl (Dilaudid) 1 mg Q4H PRN IVP pain 4-10 09/06/18 12:15 09/13/18 12:14 Iopamidol (Isovue-300 100ml) 100 ml NOW PRN INJ Radiology Procedure 09/05/18 23:30 Levetiracetam 100 ml @ 400 mls/hr Q12HR IVPB 09/06/18 14:00 10/06/18 13:59 09/07/18 20:59 Ondansetron HCl (Zofran) 4 mg Q6H PRN IVP Nausea & Vomiting 09/06/18 13:00 10/06/18 12:59 Pantoprazole (Protonix) 40 mg DAILY IVP 09/07/18 09:00 10/07/18 08:59 09/07/18 09:07 Piperacillin Sod/ Tazobactam Sod 3.375 gm/Dextrose 110 ml @ 27.5 mls/hr EVERY 8 HOURS IVPB 09/06/18 14:00 09/11/18 13:59 09/08/18 04:52 Regino Lebron MD Sep 08, 2018 08:10
[2018-09-08] MEDS: levETIRAcetam 500mg/NS100ml 100 ML IVPB SCH ×2 (09:47→21:28)
[2018-09-08] MEDS: Pantoprazole Inj IVP SCH (09:48)
[2018-09-08] MEDS: Heparin 5000 units/ml inj SUBQ SCH ×2 (09:50→21:29)
[2018-09-08 12:00] VITALS: BP 113/77
--- NOTE | 2018-09-08 14:16 | NUR ---
MRI ABDOMEN W/WO COMPLETED.
[2018-09-08 16:00] VITALS: BP 117/70
--- NOTE | 2018-09-08 16:02 | Surgery Progress Note ---
Surgery Progress Note Subjective Additional Comments no acute events. tolerating diet. comfortable. c/o back pain Objective Last 24 Hour Vital Signs Date Time Temp Pulse Resp B/P (MAP) Pulse Ox O2 Delivery O2 Flow Rate FiO2 09/08/18 12:00 98.2 86 18 113/77 (89) 95 09/08/18 09:00 Room Air 09/08/18 08:00 97.0 86 20 117/80 (92) 93 09/07/18 20:03 96.4 18 116/73 (87) 96 09/07/18 18:06 Room Air I&O Intake and Output 09/07/18 09/08/18 19:00 07:00 Intake Total 1350 ml 1507.5 ml Output Total 1500 ml 500 ml Balance -150 ml 1007.5 ml Intake Oral 450 ml 820 ml IV Total 900 ml 687.5 ml Output Urine Total 1500 ml 500 ml # Voids 3 Wound: clean Drains: other Cardiovascular: RSR Respiratory: clear Abdomen: soft, non-tender, present bowel sounds, non-distended Extremities: no cyanosis Plan Problems: (1) Abdominal pain Assessment & Plan: This is a 33-year-old male with complex medical and surgical history who presents with abdominal pain while coughing or sneezing. Patient is afebrile hemodynamically stable with otherwise normal labs. Patient' s CAT scan demonstrates a moderate sized lesser sac fluid collection with unknown etiology.10 x 8 x 8 cm cystic lesion in the lesser sac, may represent pseudocysts. Differential consideration is a bowel duplication cyst. likely pancreatic pseydocyst from prior pancreatitis. will need to review records from [facility] once available Okay for Puree diet for now okay for meds though J tube will review films with radiologist and GI MRI Abdomen ordered - pending Thank you will follow with recs. (2) Pseudocyst of pancreas Chevy Ren Sep 08, 2018 16:02
--- NOTE | 2018-09-08 16:06 | Diagnostic Imaging Report ---
Indication: Evaluation of cyst demonstrated on recent CT scan Technique: Axial single shot fast spin echo breath hold, coronal single shot fast spin-echo breath hold, axial T2 FRFSE fat-saturated, 2-D thick slab MRCP, axial 2-D FIESTA fat-saturated, axial 3-D dual echo breath-hold, precontrast axial and postcontrast axial and coronal water weighted axial LAVA FLEX images of the abdomen Comparison: Findings: There is a 9.5 x 6.9 x 9.4 cm lesion in the left upper quadrant which demonstrates fluid signal on all sequences. This is located immediately posterior to the posterior wall of the stomach, and the inferior portion abuts the anterior aspect of the pancreatic body and tail. No enhancement is demonstrated. It does appear to have a perceptible rim on the single shot fast spin-echo and the LAVA FLEX images. The liver, gallbladder, bile ducts, pancreas, spleen, adrenals are unremarkable. There are bilateral renal cysts. No pelvic mass or adenopathy. A jejunostomy tube is again demonstrated. Pleural and parenchymal opacities are seen at the left lung base, better visualized on recent CT Impression: 9.5 x 6.9 x 9.4 cm left upper quadrant fluid signal lesion consistent with cyst described on recent CT scan. Main differential considerations include foregut duplication cyst coming off of the stomach, versus pancreatic pseudocyst. Given the relatively greater association with the stomach as well as absence of any other changes to suggest are pancreatitis, favor the former. Unilocular cystic neoplasm much less likely. Other findings as noted, including renal cysts, jejunostomy, abnormal left lung base which is better described on recent CT scan
--- NOTE | 2018-09-08 19:22 | NUR ---
NURSE NOTES: PATIENT IN BED, AWAKE, ALERT, VERBALLY RESPONSIVE. IV IN PLACE, RUNNING IV FLUIDS. NO COMPLAINTS OF PAIN AT THIS TIME. NO S/S DISTRESS NOTED. BED IN LOWEST POSITION, CALL LIGHT WITHIN REACH, WILL CONTINUE TO MONITOR. Addendum: 09/09/18 at 0109 by BRIAN MACIEL RN RN J-TUBE IN PLACE, DRESSING CHANGED.
[2018-09-08 20:00] VITALS: BP 110/73
[2018-09-08] MEDS ORDERED: Milk of Magnesia 30ml Ud ORAL SCH (20:30)
--- NOTE | 2018-09-08 23:00 | NUR ---
NURSE NOTES: PATIENT REQUESTED NOT TO BE DISTURBED EVEN FOR V/S UNTIL 0600.
[2018-09-09] MEDS: Piperacillin/Tazobactam 3.375 GM in D5W 110 ML IVPB SCH ×3 (06:17→21:48)
[2018-09-09 06:23] VITALS: BP 110/76
--- NOTE | 2018-09-09 07:25 | NUR ---
HAND-OFF: Report given to CHANDRA ARMIJO RN.
[2018-09-09 08:00] VITALS: BP 117/79
--- NOTE | 2018-09-09 08:18 | Pulmonology Progress Note ---
Assessment/Plan Assessment/Plan prior thoracotomy pleural effusion, loculated likely post operative changes abdominal pain seizure history abnormal CT abdomen PLAN monitor pulmonary status periodic imaging oxygen as needed MRI abdomen noted d/w surgery- plan for surgery monitor impression, plan, and exam edited and reviewed in detail care discussed with RN Subjective Allergies: Coded Allergies: No Known Allergies (Unverified , 09/05/18) Subjective care noted and reviewed reviewed MRI Objective Last 24 Hour Vital Signs Date Time Temp Pulse Resp B/P (MAP) Pulse Ox O2 Delivery O2 Flow Rate FiO2 09/09/18 06:23 97.7 75 18 110/76 (87) 97 09/08/18 23:22 Room Air 09/08/18 20:00 97.7 86 18 110/73 (85) 96 09/08/18 16:00 98.1 90 16 117/70 (86) 98 09/08/18 12:00 98.2 86 18 113/77 (89) 95 09/08/18 09:00 Room Air Intake and Output 09/08/18 09/09/18 19:00 07:00 Intake Total 623.75 ml 720.0 ml Output Total 400 ml Balance 623.75 ml 320.0 ml Intake Oral 360 ml IV Total 623.75 ml 360.0 ml Output Urine Total 400 ml # Voids 1 Objective WDWN NAD clear breath sounds with reduced left base; no rhonchi or wheeze [id number] without MRG NABS nontender no HSM; no distention no CCE weak Current Medications Medications (Trade) Dose Ordered Sig/Dolores Route PRN Reason Start Time Stop Time Status Last Admin Dose Admin Dextrose/ Electrolytes 1,000 ml @ 75 mls/hr [id number] IV 09/06/18 14:00 10/06/18 13:59 09/08/18 18:30 Gadobutrol (Gadavist) 7.5 mmol NOW PRN IV Radiology Procedure 09/07/18 13:15 09/11/18 13:15 Heparin Sodium (Porcine) (Heparin 5000 units/ml) 5,000 units EVERY 12 HOURS SUBQ 09/06/18 21:00 10/06/18 20:59 09/08/18 21:29 Hydromorphone HCl (Dilaudid) 1 mg Q4H PRN IVP pain 4-10 09/06/18 12:15 09/13/18 12:14 Iopamidol (Isovue-300 100ml) 100 ml NOW PRN INJ Radiology Procedure 09/05/18 23:30 Levetiracetam 100 ml @ 400 mls/hr Q12HR IVPB 09/06/18 14:00 10/06/18 13:59 09/08/18 21:28 Ondansetron HCl (Zofran) 4 mg Q6H PRN IVP Nausea & Vomiting 09/06/18 13:00 10/06/18 12:59 Pantoprazole (Protonix) 40 mg DAILY IVP 09/07/18 09:00 10/07/18 08:59 09/08/18 09:48 Piperacillin Sod/ Tazobactam Sod 3.375 gm/Dextrose 110 ml @ 27.5 mls/hr EVERY 8 HOURS IVPB 09/06/18 14:00 09/11/18 13:59 09/09/18 06:17 Regino Lebron MD Sep 09, 2018 08:18
[2018-09-09] MEDS: Pantoprazole Inj IVP SCH (08:29)
[2018-09-09] MEDS: levETIRAcetam 500mg/NS100ml 100 ML IVPB SCH ×2 (08:29→21:00)
[2018-09-09] MEDS: Heparin 5000 units/ml inj SUBQ SCH ×2 (08:39→21:54)
--- NOTE | 2018-09-09 09:07 | Diagnostic Imaging Report ---
Indication: Abdominal pain, abnormal recent CT and MRI Technique: Martell-scale and duplex images of the upper abdomen were obtained Comparison: Reference made to abdomen MRI dated 09/08/2018, abdomen pelvis CT dated 09/05/2018 Findings: Gallbladder is unremarkable, without stones, wall thickening, nor pericholecystic fluid. Sonographic Ferraro's sign is negative. Common bile duct measures 2 mm in diameter. No intrahepatic biliary ductal dilatation. Liver demonstrates normal echogenicity, no focal abnormality. Portal vein and hepatic veins are patent. Pancreas is unremarkable. Spleen is unremarkable. Left kidney measures 11.9 cm in length. Right kidney measures 11 cm length. Both kidneys demonstrate normal echogenicity. There is no hydronephrosis. No focal abnormality . Non-aneurysmal abdominal aorta . In the left upper quadrant of the abdomen, there is a cyst which measures 9.3 x 3.7 x 9.3 cm. Impression: Left upper quadrant cyst, better seen on recent CT and MRI. As previously, most likely differential considerations include foregut duplication, pancreatic pseudocyst Negative for gallstones or dilated ducts or other significant abnormality
--- NOTE | 2018-09-09 12:45 | Surgery Progress Note ---
Surgery Progress Note Subjective Additional Comments MRI noted. US noted. CT reviewed. Discussed symptoms and findings with patient. Discussed options. Objective Last 24 Hour Vital Signs Date Time Temp Pulse Resp B/P (MAP) Pulse Ox O2 Delivery O2 Flow Rate FiO2 09/09/18 08:00 96.8 94 18 117/79 (92) 95 09/09/18 06:23 97.7 75 18 110/76 (87) 97 09/08/18 23:22 Room Air 09/08/18 20:00 97.7 86 18 110/73 (85) 96 09/08/18 16:00 98.1 90 16 117/70 (86) 98 I&O Intake and Output 09/08/18 09/09/18 18:59 06:59 Intake Total 651.25 ml 720.0 ml Output Total 400 ml Balance 651.25 ml 320.0 ml Intake Oral 360 ml IV Total 651.25 ml 360.0 ml Output Urine Total 400 ml # Voids 1 Drains: other Cardiovascular: RSR Respiratory: clear Abdomen: soft, tenderness, present bowel sounds, other Extremities: no cyanosis Plan Problems: (1) Abdominal pain Assessment & Plan: This is a 33-year-old male with complex medical and surgical history who presents with abdominal pain while coughing or sneezing. Patient is afebrile hemodynamically stable with otherwise normal labs. Patient' s CAT scan demonstrates a moderate sized lesser sac fluid collection with unknown etiology.10 x 8 x 8 cm cystic lesion in the lesser sac, may represent pseudocysts. Differential consideration is a bowel duplication cyst. Reviewed CT, MRI, US. 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 large posterior gastric. possible causing early satiety. abd pain/ discomfort. discussed findings with patient discussed care plan patient is very adamant that he wants it removed. states symptoms are uncomfortable and if any chance for relief would like to have excision plan for surgery tomorrow lap excision of gastric cyst Thank you will follow with recs. (2) Pseudocyst of pancreas Chevy Ren Sep 09, 2018 12:45
--- NOTE | 2018-09-09 12:47 | Pre-Procedure Note/Attestation ---
Pre-Procedure Note/Attestation Complete Prior to Procedure Planned Procedure: not applicable Procedure Narrative: Laparoscopic excision of gastric cyst; possible open Indications for Procedure Pre-Operative Diagnosis: large lesser sac gastric cyst Attestation I attest that I discussed the nature of the procedure; its benefits; risks and complications; and alternatives (and the risks and benefits of such alternatives ), prior to the procedure, with the patient (or the patient's legal operations representative). I attest that, if there was a reasonable possibility of needing a blood transfusion, the patient (or the patient's legal operations representative) was given the [facility] standardized written summary, pursuant to the [place] Blood Safety Act ([place] Health and Safety Code # 1645, as amended). I attest that I re-evaluated the patient just prior to the surgery and that there has been no change in the patient's H&P, except as documented below: Chevy Ren Sep 09, 2018 12:47
[2018-09-09 15:49] VITALS: BP 113/69
--- NOTE | 2018-09-09 15:50 | NUR ---
NURSE NOTES: PER DR. MENDEZ, HE WILL SPEAK TO PT'S THORACIC SURGEON FROM [facility] BEFORE GOING THROUGH WITH SURGICAL PROCEDURE. PER DR MENDEZ, HOLD CONSENT FOR PROCEDURE. PT MADE AWARE. PT AXOX4, CALM, AND IN NO APPARENT DISTRESS AT THIS TIME. PT VERBALIZES UNDERSTANDING OF PENDING SURGICAL PROCEDURE. AMBULATORY WITH STEADY GAIT. PT WALKS TO [facility]. PT EDUCATED TO STAY ON [address]. PT VERBALIZED UNDERSTANDING.
--- NOTE | 2018-09-09 17:40 | NUR ---
NURSE NOTES: PER DR MENDEZ, CANCEL SURGERY.
[2018-09-09] MEDS: Sennosides 8.6mg tab ORAL PRN (18:21)
--- NOTE | 2018-09-09 19:30 | NUR ---
NURSE NOTES: Received a report from ADA Olson. Pt is in stable condition. AAOX4. Able to make needs known. No respiratory distress noted. On room air. No c/o pain/discomfort. IV site is patent and intact. Pt is refusing the IV fluid and V/S. He stated that it's ok to get V/S and administer fluid at 0600 tomorrow. Bed in lowest position. Will continue to monitor.
--- NOTE | 2018-09-09 21:00 | NUR ---
NURSE NOTES: Pt refused Keppra and IV fluid despite education provided. Charge Nurse Keon made aware.
--- NOTE | 2018-09-10 01:31 | Cardiology Report ---
APPROVED REPORT EKG Measurement Heart [id number] Normal sinus rhythm Normal ECG
[2018-09-10] MEDS: Piperacillin/Tazobactam 3.375 GM in D5W 110 ML IVPB SCH (06:23)
--- NOTE | 2018-09-10 07:00 | NUR ---
HAND-OFF: Report given to ADA Olson. Pt removed his IV. Tried to insert it, but failed. Endorsed to ADA Olson, to insert IV. Zosyn will be hang by ADA Olson, once IV inserted.
[2018-09-10 07:24] LABS: BASOPHILS % (AUTO) 0.9 % (0.0-2.0); EOSINOPHILS % (AUTO) 5.9 % (0.0-3.0); HEMATOCRIT 40.5 % (42.0-52.0); HEMOGLOBIN 12.8 G/DL (14.2-18.0); LYMPHOCYTES % (AUTO) 29.7 % (20.0-45.0); MEAN CORPUSCULAR VOLUME 84 FL (80-99); MONOCYTES % (AUTO) 10.3 % (1.0-10.0); NEUTROPHILS % (AUTO) 53.3 % (45.0-75.0); PLATELET COUNT 240 K/UL (150-450); RED BLOOD COUNT 4.85 M/UL (4.70-6.10); WHITE BLOOD COUNT 4.7 K/UL (4.8-10.8)
--- NOTE | 2018-09-10 07:34 | NUR ---
NURSE NOTES: PT STATES HE IS OPEN TO IV ACCESS INSERTION. AMBULATORY WITH STEADY GAIT. IN NO APPARENT DISTRESS AT THIS TIME. WILL CONTINUE TO MONITOR.
[2018-09-10 07:45] LABS: ANION GAP 8 mmol/L (5-15); BLOOD UREA NITROGEN 8 mg/dL (7-18); CALCIUM 9.2 MG/DL (8.5-10.1); CARBON DIOXIDE 28 MMOL/L (21-32); CHLORIDE 105 MMOL/L (98-107); CREATININE 0.8 MG/DL (0.55-1.30); POTASSIUM 3.5 MMOL/L (3.5-5.1); SODIUM 141 MMOL/L (136-145)
[2018-09-10 08:00] VITALS: BP 105/74
[2018-09-10] MEDS: levETIRAcetam 500mg/NS100ml 100 ML IVPB SCH (08:10)
[2018-09-10] MEDS: Pantoprazole Inj IVP SCH (08:10)
[2018-09-10] MEDS: Heparin 5000 units/ml inj SUBQ SCH (08:18)
--- NOTE | 2018-09-10 11:40 | Surgery Progress Note ---
Surgery Progress Note Subjective Additional Comments no acute events. spoke with patients primary thoracic surgeon yesterday Dr. Pace at [facility]. They are aware of cyst and have plans for work up. Given this surgery for today cancelled. otherwise well. Objective Last 24 Hour Vital Signs Date Time Temp Pulse Resp B/P (MAP) Pulse Ox O2 Delivery O2 Flow Rate FiO2 09/10/18 08:00 98.4 73 105/74 (84) 09/09/18 15:49 97.7 85 18 113/69 (84) 97 I&O Intake and Output 09/09/18 09/10/18 19:00 07:00 Intake Total 755.0 ml 240 ml Output Total 750 ml Balance 755.0 ml -510 ml Intake Oral 360 ml 240 ml IV Total 395.0 ml 0 ml Output Urine Total 750 ml # Voids 3 Dressing: other Wound: other Drains: other Cardiovascular: RSR Respiratory: clear Abdomen: soft, non-tender, present bowel sounds, other, non-distended Extremities: no edema, no tenderness, no cyanosis Laboratory Tests Test 09/10/18 05:29 White Blood Count 4.7 K/UL (4.8-10.8) L Red Blood Count 4.85 M/UL (4.70-6.10) Hemoglobin 12.8 G/DL (14.2-18.0) L Hematocrit 40.5 % (42.0-52.0) L Mean Corpuscular Volume 84 FL (80-99) Mean Corpuscular Hemoglobin 26.5 PG (27.0-31.0) L Mean Corpuscular Hemoglobin Concent 31.7 G/DL (32.0-36.0) L Red Cell Distribution Width 13.0 % (11.6-14.8) Platelet Count 240 K/UL (150-450) Mean Platelet Volume 4.8 FL (6.5-10.1) L Neutrophils (%) (Auto) 53.3 % (45.0-75.0) Lymphocytes (%) (Auto) 29.7 % (20.0-45.0) Monocytes (%) (Auto) 10.3 % (1.0-10.0) H Eosinophils (%) (Auto) 5.9 % (0.0-3.0) H Basophils (%) (Auto) 0.9 % (0.0-2.0) Prothrombin Time 10.7 SEC (9.30-11.50) Prothromb Time International Ratio 1.0 (0.9-1.1) Activated Partial Thromboplast Time 27 SEC (23-33) Sodium Level 141 MMOL/L (136-145) Potassium Level 3.5 MMOL/L (3.5-5.1) Chloride Level 105 MMOL/L (98-107) Carbon Dioxide Level 28 MMOL/L (21-32) Anion Gap 8 mmol/L (5-15) Blood Urea Nitrogen 8 mg/dL (7-18) Creatinine 0.8 MG/DL (0.55-1.30) Estimat Glomerular Filtration Rate > 60 mL/min (>60) Glucose Level 78 MG/DL (74-106) Calcium Level 9.2 MG/DL (8.5-10.1) Plan Problems: (1) Abdominal pain Assessment & Plan: This is a 33-year-old male with complex medical and surgical history who presents with abdominal pain while coughing or sneezing. Patient is afebrile hemodynamically stable with otherwise normal labs. Patient' s CAT scan demonstrates a moderate sized lesser sac fluid collection with unknown etiology.10 x 8 x 8 cm cystic lesion in the lesser sac, may represent pseudocysts. Differential consideration is a bowel duplication cyst. Reviewed CT, MRI, US. 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 large posterior gastric. possible causing early satiety. abd pain/ discomfort. discussed findings with patient discussed care plan patient is very adamant that he wants it removed. states symptoms are uncomfortable and if any chance for relief would like to have excision after discussion with primary thoracic surgery who repaired esophageal tear, will d/c and have f/u with [facility] for remainder of care stable for d/c f/u next week with [facility] surgical team for surgery plan Thank you will follow with recs. (2) Pseudocyst of pancreas Chevy Ren Sep 10, 2018 11:40
[2018-09-10 12:00] VITALS: BP 141/80
--- NOTE | 2018-09-10 12:45 | NUR ---
*-* DISCHARGE PLANNING *-* PATIENT HAS BEEN REFERRED BACK TO: [facility] [address] P:[phone]
--- NOTE | 2018-09-10 12:47 | NUR ---
NURSE NOTES: DR TINOCO MADE AWARE OF POLST WITH DNR STATUS, PER DR TINOCO, CHANGE TO DNR STATUS. MD WITH ORDER FOR DISCHARGE. RN LEFT MESSAGE REGARDING IV ZOSYN 3.375GM Q8H. BEAD FORMING MACHINE SET UP OPERATOR BENITO MADE AWARE OF DISCHARGE ORDER. WILL CONTINUE TO MONITOR.
--- NOTE | 2018-09-10 13:55 | NUR ---
*-* DISCHARGE PLANNING *-* PATIENT IS DISCHARGED TO: [facility] ROOM# 51-[id number] SKILLED T:[phone] FOR NURSE TO NURSE REPORT [facility] HAS BEEN ARRANGED FOR COMPUTER SYSTEMS HARDWARE ANALYST AT [id number]
--- NOTE | 2018-09-10 14:24 | NUR ---
NURSE NOTES: RN RECEIVED ORDER TO D/C IV ZOSYN. RN GAVE REPORT TO ADA JENKINS AT [facility]. PT AGREES WITH DISCHARGE. BELONGINGS CHECKED AT BEDSIDE, ALL ACCOUNTED. RN MADE ADA JENKINS AND PT AWARE HE IS TO FOLLOW UP WITH [facility] THORACIC SURGEON DR SEPULVEDA WITHIN 1 WEEK FOR SURGICAL PLANNING. BOTH VERBALIZED UNDERSTANDING. WILL CONTINUE TO MONITOR.
--- NOTE | 2018-09-10 14:45 | NUR ---
ST NOTE: BEDSIDE SWALLOW EVAL RECEIVED BEDSIDE SWALLOW EVAL CHART REVIEWED PRIOR THE EVALUATION PT IS A 33-YEAR-OLD MALE WHO WAS ADMITTED DUE TO ABDOMINAL PAIN. 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 PT WAS TRANSFERRED TO [facility](06/12/18-07/25/18). PER PLOF: [facility] AT [facility](WAS SENT TO THE FACILITY A MONTH AND HALF AGO) PER PT'S POLST: PT IS DNR, SELECTIVE TREATMENT AND OKAY WITH LONG-TERM ARTIFICIAL NUTRITION, INCLUDING FEEDING TUBES. PER CHART, PT HAS H/O ESOPHAGEAL PERORATION S/P PRIMARY REPAIR OF ESOPHAGEAL MYOMECTOMY AND INTERCOSTAL MUSCLE FLAP COVERAGE ON 05/25/18. PER FLUORO ESOPHAGRAM BARIUM SWALLOW 06/02/18: THERE IS EXTRAVASATION OF CONTRAST IN THE MID DISTAL THIRD OF THE ESOPHAGUS, CONSISTENT WITH PERSISTENT ESOPHAGEAL LEAK. NO OTHER GROSS ABNORMALITIES AND PER CHART, PT WAS ON MOIST PUREE WITH HONEY THICK LIQUIDS. PER PT, PT HAD A RECENT MBSS IN THE MID JULY AT [facility], AND PT WAS PASSED WITH PUREE DIET; AND ALSO THIN LIQUID. ? PT HAD RECENT ESOPHAGRAM RE: ESOPHAGEAL LEAKAGE. CURRENT STATUS: PT SEEN AT BEDSIDE DURING LUNCH. ALERT, COOPERATIVE, FOLLOWS DIRECTIONS, ORIENTED X 3-4. PER PT, HE WAS DRINKING THIN LIQUIDS AT THE FACILITY, DISLIKES HONEY THICKENED LIQUIDS; AND PT WAS ON [facility] SOFT(GROUND)DIET. SLOW SPEECH WAS NOTED BUT INTELLIGIBLE. GIVEN PO TRIALS: THIN(CUP-SELF), PUREE(TSP) ONLY. INITIAL IMPRESSION: MILD R-SIDED FACIAL WEAKNESS. FUNCTIONAL LABIAL AND LINGUAL RANGE OF MOTION AND STRENGTH. GOOD ORAL TRANSIT TIME TIME AND OROPHARYNGEAL TRANSIT TIME, FAIR TO GOOD LARYNGEAL ELEVATION, NO OVERT S/S OF ASPIRATION. HAS SILENT ASPIRATION RISK DUE TO H/O STROKE. CALLED PT'S FACILITY RE: PT'S CURRENT DIET CONSISTENCIES. PER NURSING STAFF, PT WAS ON PUREE WITH HONEY THICK LIQUIDS DIET AND SEEN BY THE SPEECH -LANGUAGE PATHOLOGIST AT THE FACILITY. LEFT MESSAGE TO MORTGAGE BRANCH MANAGER, PENDING TO RETURN THE CALL RE: MBSS RESULT. RECOMMENDATIONS: 1. FOR QUALITY OF LIFE, CONTINUE MOIST PUREE WITH HONEY THICK LIQUIDS DIET 2. STRICT ASPIRATION PRECAUTIONS WITH SUPERVISION 3. CONSIDER REPEAT VIDEOSWALLOW STUDY TO OBJECTIVELY ASSESS PT'S SWALLOWING FUNCTION AND R/O ANY SILENT ASPIRATION RISK 4. POSSIBLE GI CONSULT IF NEEDED. D/W PT AND RN, CHANDRA.
[2018-09-10] MEDS: Sennosides 8.6mg tab ORAL PRN (15:54)
--- NOTE | 2018-09-10 16:52 | Pulmonology Progress Note ---
Assessment/Plan Assessment/Plan prior thoracotomy pleural effusion, loculated likely post operative changes abdominal pain seizure history abnormal CT abdomen PLAN ok to dc per thoracic and general surgery d/w primary MD- update given MRI abdomen noted defer further care to [facility] and [facility] MDs impression, plan, and exam edited and reviewed in detail care discussed with RN Subjective Allergies: Coded Allergies: APPLE (Verified Allergy, Intermediate, 09/10/18) CRANBERRY (Verified Allergy, Intermediate, 09/10/18) Subjective care noted and reviewed reviewed MRI d/w thoracic and general surgery ok to dc no change in abdominal findings Objective Last 24 Hour Vital Signs Date Time Temp Pulse Resp B/P (MAP) Pulse Ox O2 Delivery O2 Flow Rate FiO2 09/10/18 12:00 95.6 82 18 141/80 (100) 97 09/10/18 08:00 98.4 73 105/74 (84) Intake and Output 09/09/18 09/10/18 18:59 06:59 Intake Total 755.0 ml 240 ml Output Total 750 ml Balance 755.0 ml -510 ml Intake Oral 360 ml 240 ml IV Total 395.0 ml Output Urine Total 750 ml # Voids 3 Objective WDWN NAD clear breath sounds with reduced left base; no rhonchi or wheeze [id number] without MRG NABS nontender no HSM; no distention no CCE weak Laboratory Tests 09/10/18 05:29: White Blood Count 4.7L, Red Blood Count 4.85, Hemoglobin 12.8L, Hematocrit 40.5L , Mean Corpuscular Volume 84, Mean Corpuscular Hemoglobin 26.5L, Mean Corpuscular Hemoglobin Concent 31.7L, Red Cell Distribution Width 13.0, Platelet Count 240, Mean Platelet Volume 4.8L, Neutrophils (%) (Auto) 53.3, Lymphocytes (%) (Auto) 29.7, Monocytes (%) (Auto) 10.3H, Eosinophils (%) (Auto) 5.9H, Basophils (%) (Auto) 0.9, Prothrombin Time 10.7, Prothromb Time International Ratio 1.0, Activated Partial Thromboplast Time 27, Sodium Level 141, Potassium Level 3.5, Chloride Level 105, Carbon Dioxide Level 28, Anion Gap 8, Blood Urea Nitrogen 8, Creatinine 0.8, Estimat Glomerular Filtration Rate > 60, Glucose Level 78, Calcium Level 9.2 Ishaaya,Regino M MD Sep 10, 2018 16:51
--- NOTE | 2018-09-11 11:11 | Discharge Summary ---
Discharge Summary Discharge Summary _ DATE OF ADMISSION: 09/06/2018 DATE OF DISCHARGE: 09/10/2018 DISCHARGED BY: Dr. Hola Lebron CONSULTANTS: Dr. Chevy Ren BRIEF HOSPITAL COURSE: Patient is a 33-year-old male, with history of seizure disorder. According to patient he was well until May and had a piece of turkey stuck in his throat. He was taken to a [facility] Center where he underwent endoscopy to remove the foreign food matter. Apparently at that time, they found a large laceration in the esophagus. According to the patient, he believes the laceration had been there for several years. He had a G-tube placed in the meantime to allow for healing of the esophageal laceration. The patient was well until the night of admission when he developed severe epigastric abdominal pain and presented to the emergency room. On evaluation at ED, vital signs were stable. Blood work did not show any leukocytosis, hemoglobin and hematocrit were stable. Electrolytes were normal. LFTs and lipase were normal. Urinalysis was negative. He had an EKG that showed normal sinus rhythm at a rate of 73. Chest x-ray showed left lower lobe atelectasis, effusion and chronic changes. Abdominal and pelvic CT showed a large pseudocyst. There were postsurgical changes in the left lower hemithorax with associated loculated effusion and infiltrate/atelectasis versus aspiration. He was then admitted for evaluation of abdominal pain and esophageal laceration. He was placed on n.p.o. Surgical evaluation was done. CT scan was evaluated. Patient likely had pancreatic pseudocyst from prior pancreatitis. Records from [facility] were requested. He was started on pured diet, medications through J-tube. Abdominal ultrasound showed left upper quadrant cyst. Negative for gallstones or dilated ducts. Abdominal MRI showed a 9.5 x 6.9 x 9.4 cm left upper quadrant fluid signal lesion consistent with cyst. Patient was very adamant that he wanted it removed. He was planned for laparoscopic excision of the gastric cyst. Patient spoke with his primary thoracic surgeon at [facility]. After discussion with primary thoracic surgery who repaired the esophageal tear, patient was discharged to follow-up with [facility] for plans for surgery. Procedure was canceled and patient was discharged back to assisted. FINAL DIAGNOSES: Gastric cyst prior thoracotomy pleural effusion, loculated likely post operative changes abdominal pain seizure history abnormal CT abdomen Esophageal tear DISPOSITION: Patient was discharged to a SNF. DISCHARGE MEDICATIONS: Refer to Discharge Medication List. DISCHARGE INSTRUCTIONS: Follow-up in a week. I have been assigned to complete a discharge summary on this account, I was not involved with the patient's management. Gloria Perera NP Sep 11, 2018 11:11
== END 2018-09-10 16:15 | DRG 392 ==
LOC: EDBD 22:26 → EMR 23:28 → 4E 09-06 02:27 → EDBEDREQ 09-06 03:17
DX: K31.89 Other diseases of stomach and duodenum (principal); J90 Pleural effusion, not elsewhere classified; Z66 Do not resuscitate; Z86.73 Personal history of transient ischemic attack (TIA), and cerebral infarction without residual deficits
CPT/HCPCS: 36415; 71045; 74177; 74183; 76700; 80048; 80053; 81003; 82150; 82550; 83605; 83690; 85025; 85610; 85651; 85730; 86140; 86850; 86900; 86901; 87081; 93005; 99285; A9585; J2405